=== PATIENT | female | born 2000 | race Caucasian/White ===

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

== ENCOUNTER → 2023-03-27 15:56 | Outpatient (BNVA) | payer MEDICAID, SELFPAY | PROVIDERS: Visit Provider Registered Nurse Neonatal Intensive Care | DX: J06.9 Acute upper respiratory infection, unspecified (principal); Z11.52 Encounter for screening for COVID-19 | CPT/HCPCS: 87400; 87426 ==